=== PATIENT | male | born 1950 ===

== ENCOUNTER → 2017-06-29 05:51 | Day surgery (SDC) | payer MEDICARE, OTHER ==
--- NOTE | 2017-06-13 08:05 | HP ---
CC: Dr. Quintana HISTORY AND PHYSICAL: DATE OF PLANNED ADMISSION AND SURGERY: 06/29/17 HISTORY OF PRESENT ILLNESS: Mr. Shen is a 67-year-old white male who is admitted with bladder tumor for cystoscopy and transurethral resection of bladder tumor. Mr. Shen was referred by Dr. Quintana because of symptoms of bladder outlet obstruction and episodes of gross painless hematuria. He has nocturia about twice, day frequency about every hour with strong urgency and decreased urinary stream. About 4 weeks ago, he started having episodes of gross painless hematuria, not associated with flank pain, burning on urination, or change in his voiding. He was evaluated in the office and his urinalysis showed microscopic hematuria. Postvoid bladder ultrasound showed good bladder emptying. Rectal exam showed an enlarged and non-suspicious prostate. He was started on tamsulosin and on finasteride. Renal ultrasound was normal. Full bladder ultrasound showed a 3 cm solid mass in the left posterior bladder wall. Prostate volume measured 60 cc. The patient then had a cystoscopy which showed an enlarged prostate and a 3 cm papillary lesion arising from the left posterolateral bladder wall. The left ureteral orifice was not involved. No other suspicious bladder lesions seen. Because of the above history and findings, the patient is admitted for the above procedure. His PSA last month was 2.7. PAST MEDICAL HISTORY AND SYSTEM REVIEW: The patient is in excellent health. His only medication besides the above is thyroid replacement. He has occasional asthma and he takes inhalers as needed. 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 He does not take NSAIDs because of palpitations. FAMILY HISTORY: Relevant for his younger brother who developed prostate carcinoma at the age of 60 and was treated with radical prostatectomy with good results. SOCIAL HISTORY: He is a nonsmoker. PHYSICAL EXAMINATION GENERAL: Pleasant healthy and fit looking white male. VITAL SIGNS: Blood pressure 130/80, pulse of 60. LUNGS: Clear. HEART: Regular and rhythmic. No murmurs. ABDOMEN: Soft. No masses, no tenderness, and no CVA tenderness. EXTERNAL GENITALIA: He is circumcised. No penile lesions. Normal testes. No inguinal hernias. RECTAL EXAM: Showed an enlarged, but nonsuspicious prostate. IMPRESSION: 1. Bladder outlet obstruction with prostate enlargement, improved on treatment with tamsulosin and finasteride. 2. Recurrent episodes of gross hematuria with a 3 cm papillary lesion in the left base of the bladder consistent with transitional cell carcinoma. PLAN: Plan is for cystoscopy and transurethral resection of the bladder tumor. Because of the severe allergy to FISH, a CT urogram will not be obtained. I discussed the above plans in detail with the patient and all his questions were answered. [id number]/[facility] #: [id number] MTDD
[~2017-06-29 05:51] MED LIST: Buffered Lidocaine 0.9% SYRIN* 5 ML/SYR SYRINGE INTRADERM ONE; Buffered Lidocaine 0.9% SYRIN* 5 ML/SYR SYRINGE ONE; Dexamethasone IV* 4 MG/ML 1 ML (4 MG) IV SLOW PU ONE; Dexamethasone IV* 4 MG/ML 1 ML (4 MG) ONE; DiMENhydriNATE IV* 50 MG/ML VIAL IV PUSH PRN; EPHEDrine (Pressors)* 50 MG/ML VIAL ONE; Famotidine IV* 10 MG/ML 2 ML (20 mg) IV ONE; Famotidine IV* 10 MG/ML 2 ML (20 mg) ONE; Glycopyrrolate IV* 0.2 MG/ML 1 ML VIAL ONE; Lidocaine 2% PF * 5 ML VIAL ONE; Midazolam* 1 MG/ML 5 ML VIAL (5 MG) ONE; Ondansetron INJ* 2 MG/ML VIAL IV PRN; Ondansetron INJ* 2 MG/ML VIAL ONE; Oxybutynin TAB* 5 MG ONE; Phenylephrine IV* 40 MCG/ML 10 ML SYRINGE ONE; Propofol* 10 MG/ML 20 ML BTL IV PUSH ONE; cefTRIAXone(*) 2 GM ADDV.VIAL IVPB ONE; fentaNYL* 50 MCG/ML 2 ML VIAL (100 MCG VIAL) IV PRN; fentaNYL* 50 MCG/ML 5 ML VIAL (250 MCG VIAL) ONE; mitoMYcin PWD* 40 MG in Sterile Water for Inj* 40 ML IRRIGATION ONE; oxyCODONE/Acetamin 5/325 MG* TAB PO PRN
[2017-06-29 11:30] VITALS: BP 114/81
--- NOTE | 2017-06-29 23:19 | OP ---
CC: Dr. Quintana's office OPERATIVE REPORT: DATE OF OPERATION: 06/29/17 DATE OF : 52 SURGEON: Javier Covarrubias MD ANESTHESIOLOGIST: Dr. Kenneth Etienne. ANESTHESIA: General. PRE-OP DIAGNOSES: 1. Benign prostatic hyperplasia. 2. Bladder tumor (left lateral wall, 4 cm). POST-OP DIAGNOSES: 1. Benign prostatic hyperplasia. 2. Bladder tumor (left lateral wall, 4 cm). OPERATIVE PROCEDURE: 1. Cystoscopy. 2. Transurethral resection of bladder tumor (left lateral wall, 4 cm). INDICATION FOR PROCEDURE: Mr. Shen is a 67-year-old male, who was referred by Dr. Quintana because of symptoms of bladder outlet obstruction and episodes of gross painless hematuria. Work-up showed a large obstructing prostate and a 4 cm bladder tumor originating from the left lateral bladder wall. The tumor had the appearance of a well differentiated transitional cell carcinoma. Renal ultrasound was normal. The patient has been maintained on tamsulosin and on finasteride with improvement in his voiding. The patient is admitted for the above procedure. PATHOLOGY AT CYSTOSCOPY: The penile urethra looked normal. There was some narrowing of the bulbar urethra just distal to the level of the external sphincter and this had to be dilated to successfully introduce the resectoscope. The prostatic urethra measured about 3.5 cm in length and there was significant obstruction by a large median lobe. Examination of the bladder showed moderate diffuse trabeculations. The ureteral orifices looked normal. There was a papillary lesion measuring 4 cm in diameter that was arising from the left lateral bladder wall. The tumor was pedunculated and had the gross appearance of well differentiated non-invasive transitional cell carcinoma. There were small flat low grade looking tumors adjacent to its base. The rest of the bladder wall looked normal. There were no lesions suspicious of carcinoma in situ. No diverticula and no calculi were noted. DESCRIPTION OF PROCEDURE: After successful general anesthesia, the patient was placed in the lithotomy position and was prepped and draped for a cystoscopy. Cystoscopy was performed. The bladder was carefully inspected and the above findings were noted. The resectoscope was then introduced inside the bladder. The narrowing in the bulbar urethra was dilated with the resectoscope to successfully introduce the scope inside the bladder. The bladder was kept only partially distended. The bulk of the tumor was then resected just to the level of its base. During the resection, there was a mild obturator reflex that was noted. There was, however, no bladder injury. The bladder was then irrigated and the resected tissue was evacuated and sent for pathology, labelled as bladder tumor specimen. The resectoscope was then removed and a 22-Palestinian cystoscope was introduced inside the bladder. Using the rigid biopsy forceps, the base of the tumor and the adjacent small tumors were then excised down to muscle and were sent separately as base of tumor specimen. There was no gross residual tumor seen and no bladder perforation. Using the Bugbee electrode, the base of the tumor and the adjacent tissue was fulgurated with the coagulation current, achieving very good hemostasis. After a final inspection, which showed good hemostasis, no residual tumors and no evidence of bladder perforation, the cystoscope was removed and an 18- Palestinian Smith catheter passed inside the bladder and the balloon inflated with 15 cc of water. Irrigation yielded clear returns. The patient tolerated the procedure well and left the operating room in good condition. The plan is to give the patient one dose of intravesical mitomycin-C in the recovery room. Considering the large obstructing prostate, and the thinned out bladder wall at the base l of the resected blader tumor, the plan is to discharge the patient home with a Smith catheter, which will be removed in the office in 4 days. [id number]/[facility] #: [id number] CRYSTAL
== END | disposition home or self-care (01) ==
LOC: OR 05:51
PROVIDERS: ATTEND Urology
DX: C67.2 Malignant neoplasm of lateral wall of bladder (principal); R31.0 Gross hematuria; N40.1 Benign prostatic hyperplasia with lower urinary tract symptoms; N13.8 Other obstructive and reflux uropathy; R00.2 Palpitations; G47.33 Obstructive sleep apnea (adult) (pediatric)
CPT/HCPCS: 88305; A9270-GY; J0696; J1100; J2250; J2405; J2704; J3010; J9280